=== PATIENT | male | born 1975 | race Two or more races ===

== ENCOUNTER 2023-09-05 14:45 | Emergency (ER) | payer BC, OTHER ==
[~2023-09-05] VITALS: Ht 170.2 cm; Wt 81.8 kg
[2023-09-05 15:07] VITALS: BP 157/84; PULSE 88; RESP 20; TEMP 98.9; O2SAT 98
[2023-09-05] MEDS ORDERED: IBUP-1456 PO (16:30)
[2023-09-05] MEDS ORDERED: METH-1182 PO (16:30)
[2023-09-05] MEDS ORDERED: PRED20TA2 PO (16:30)
== END 2023-09-05 16:58 | disposition home or self-care (01) ==
LOC: ER 14:45 → EDBD 14:45 → ER 16:57
DX: S29.011A Strain of muscle and tendon of front wall of thorax, initial encounter (principal); J98.4 Other disorders of lung; Z79.899 Other long term (current) drug therapy; V29.99XA Rider (driver) (passenger) of other motorcycle injured in unspecified traffic accident, initial encounter; Y93.55 Activity, bike riding; Y92.89 Other specified places as the place of occurrence of the external cause; Y99.8 Other external cause status
CPT/HCPCS: 71250